=== PATIENT | female | born 1965 | race Caucasian/White ===

== ENCOUNTER 2016-05-20 10:50 | Emergency (ER) | payer MEDICAID ==
[~2016-05-20] VITALS: Ht 172.7 cm; Wt 54.4 kg
[~2016-05-20 10:50] MED LIST: ATEN50TA; ATENPOW10; ATIVAN; FLUT250M2; KEPRA; LEVA0.31; LUPIN PO; SOMA
[2016-05-20 11:07] VITALS: BP 136/89
[2016-05-20 11:26] LABS: Basophils # (auto) 0 uL; Basophils % (auto) 0.4 % (0.0-2.0); DEFINITIVE VIEW TRANSMISSION; Eosinophils # (auto) 0 uL; Eosinophils % (auto) 0.6 % (0.0-7.0); Hemoglobin 14.6 g/dL (12.2-16.2); Lymphocytes # (auto) 1.2 uL; Lymphocytes % (auto) 26.4 % (10.0-50.0); Mean Corpuscular Hemoglobin 37.3 pg (28.0-32.0); Mean Corpuscular Volume 109.6 fL (80.0-100.0); Mean Platelet Volume 7.4 fL (7.4-10.4); Monocytes # (auto) 0.5 uL; Monocytes % (auto) 10.3 % (0.0-12.0); Neutrophils # (auto) 2.8 uL; Neutrophils % (auto) 62.3 % (37.0-80.0); Platelet Count (auto) 229 10^3/uL (140-450); White Blood Cell 4.5 10^3/uL (4.4-10.8)
[2016-05-20 11:47] LABS: Albumin 3.4 g/dL (3.4-5.0); BUN/Creatinine Ratio 14.5; Bilirubin, Total 0.7 mg/dL (0.2-1.0); Calcium 8.8 mg/dL (8.5-10.1); Potassium 4.6 mmol/L (3.5-5.1); Total Protein 6.8 g/dL (6.4-8.2)
== END 2016-05-20 14:00 | disposition left against medical advice (07) ==
LOC: ER 10:50 → EDBD 10:50 → ER 14:00
DX: R07.89 Other chest pain (principal); Z53.21 Procedure and treatment not carried out due to patient leaving prior to being seen by health care provider
CPT/HCPCS: 36415; 71020; 80053; 85025; 93005

== ENCOUNTER 2016-05-30 08:10 | Emergency (ER) | payer MEDICAID ==
[~2016-05-30] VITALS: Ht 177.8 cm; Wt 55.8 kg
[2016-05-30 08:18] VITALS: BP 161/98
[2016-05-30] MEDS ORDERED: FLUORESCEIN SOD 1 MG TEST STRIP OP ONE (08:30)
[2016-05-30] MEDS ORDERED: TETRACAINE HCL 0.5% OPTH(EYE) SOLN 4ML EACHEYE ONE (08:30)
== END 2016-05-30 09:23 | disposition home or self-care (01) ==
LOC: EDBD 08:10 → ER 08:18
DX: S05.02XA Injury of conjunctiva and corneal abrasion without foreign body, left eye, initial encounter (principal); S05.01XA Injury of conjunctiva and corneal abrasion without foreign body, right eye, initial encounter; Z88.6 Allergy status to analgesic agent; X58.XXXA Exposure to other specified factors, initial encounter; Y93.89 Activity, other specified; Y99.8 Other external cause status; Y92.89 Other specified places as the place of occurrence of the external cause